=== PATIENT | male | born 1955 | race African-American/Black ===

== ENCOUNTER 2021-11-26 09:32 | Inpatient (IN) | payer OTHER ==
[~2021-11-26] VITALS: Ht 180.3 cm; Wt 67.6 kg
[2021-11-26] MEDS ORDERED: SODIUM CHLORIDE 0.9% 1,000 ML IV ONE (09:45)
[2021-11-26 09:50] LABS: BASOPHILS % 0.1 % (0.0-2.0); HEMATOCRIT. 31.4 % (42.0-52.0); HEMOGLOBIN. 10.3 g/dL (14.0-18.0); LYMPHOCYTES % 7.5 % (20.0-50.0); MEAN CORPUSCULAR HEMOGLOBIN 32.7 pg (28.0-32.0); MEAN CORPUSCULAR VOLUME 99.9 fL (80.0-94.0); MEAN PLATELET VOLUME 9.1 fl (7.4-10.4); NEUTROPHILS % 87.4 % (40.0-76.0); PLATELET 185 x1000/uL (130-400); RED BLOOD CELL COUNT 3.14 mill/uL (4.7-6.1); RED CELL DISTRIBUTION WIDTH 12.6 % (11.6-14.6)
[2021-11-26] MEDS: ADENOSINE 3 MG/ML 2ML VIAL IV ONE ×2 (09:56→09:57)
[2021-11-26 10:00] LABS: CHLORIDE 106 mEq/L (98-107)
[2021-11-26] MEDS ORDERED: DILTIAZEM HCL 5MG/ML 5ML VIAL IV ONE (10:00)
[2021-11-26] MEDS ORDERED: ASPIRIN 325MG EC TABLET PO ONE (10:15)
[2021-11-26] MEDS ORDERED: DILTIAZEM HCL 120MG CAPSULE ER 24HR PO ONE (10:15)
[2021-11-26] MEDS ORDERED: ENOXAPARIN 100MG/ML SYR SUBCUT ONE (11:15)
[2021-11-26] MEDS ORDERED: NITROGLYCERIN OINT 1GM/INCH UDPKT TD ONE (11:15)
[2021-11-26] MEDS ORDERED: FUROSEMIDE 40MG/4ML VIAL IV ONE (11:15)
[2021-11-26 12:18] LABS: CLARITY URINE CLEAR (CLEAR); COLOR URINE YELLOW (YELLOW); KETONES URINE NEGATIVE (NEGATIVE); LEUKOCYTE ESTERASE URINE NEGATIVE (NEGATIVE); NITRITE URINE NEGATIVE (NEGATIVE); OCCULT BLOOD URINE NEGATIVE (NEGATIVE); PH URINE 5.5 (4.5-8.0); PROTEIN URINE 1+ (NEGATIVE); SPECIFIC GRAVITY URINE 1.008 (1.005-1.030); UROBILINOGEN URINE 0.2 E.U./dL (0.2-1.0)
[2021-11-26] MEDS ORDERED: GUAIFENESIN 200MG/10ML SUGAR FREE UDC PO PRN (13:30)
[2021-11-26] MEDS ORDERED: ONDANSETRON HCL 4MG/2ML INJ IV PRN (13:30)
[2021-11-26] MEDS ORDERED: IPRATROPIUM/ALBUTEROL 0.5-3(2.5)MG/3ML NEB HHN PRN (13:30)
[2021-11-26] MEDS ORDERED: LORAZEPAM 0.5MG TABLET PO PRN (13:30)
[2021-11-26] MEDS ORDERED: DOCUSATE SODIUM 100MG CAPSULE PO PRN (13:30)
[2021-11-26] MEDS ORDERED: ACETAMINOPHEN 325MG TABLET PO PRN ×2 (13:30)
[2021-11-26] MEDS: AMLODIPINE 10MG TABLET PO SCH (13:55)
[2021-11-26] MEDS: CLONIDINE 0.1MG TABLET PO PRN ×2 (14:07→20:56)
[2021-11-26 14:20] LABS: BG BASE EXCESS -5.7 mmol/L (-2.0-2.0); BG CARBOXYHEMOGLOBIN 1.1 % (0.5-1.5); BG DEOXYHEMOGLOBIN 4.4 % (0.0-5.0); BG FRACTION INSPIRED OXYGEN 40; BG METHEMOGLOBIN 0.3 % (0.0-1.5); BG OXYGEN SATURATION 95.5 % (92.0-98.5); BG OXYHEMOGLOBIN 94.2 % (94.0-97.0); BG PCO2 29.8 mmHg (35.0-45.0); BG PH 7.398 (7.350-7.450); BG PO2 78.7 mmHg (75.0-100.0); BG SAMPLE SITE RIGHT RADIAL; BG TOTAL HEMOGLOBIN 12.1 g/dL (12.0-18.0); BG VENT MODE NASAL CANNULA
[2021-11-26 14:55] LABS: *AMPHETAMINES SCREEN URINE NEGATIVE (NEGATIVE); *BARBITURATES SCREEN URINE NEGATIVE (NEGATIVE); *BENZODIAZEPINES SCREEN URINE NEGATIVE (NEGATIVE); *COCAINE SCREEN URINE NEGATIVE (NEGATIVE); CANNABINOID URINE SCREEN NEGATIVE (NEGATIVE); METHADONE URINE SCREEN NEGATIVE (NEGATIVE); OPIATES URINE SCREEN NEGATIVE (NEGATIVE); PHENCYCLIDINE URINE SCREEN NEGATIVE (NEGATIVE)
[2021-11-26] MEDS ORDERED: NITROGLYCERIN 0.4MG TABLET SL SL PRN (15:00)
[2021-11-26] MEDS ORDERED: HYDRALAZINE 20MG/ML VIAL IV PRN (15:15)
[2021-11-26] MEDS ORDERED: DILTIAZEM HCL 5MG/ML 5ML VIAL IV NR (15:30)
[2021-11-26 16:36] VITALS: BP 180/102
[2021-11-26 18:36] LABS: CREATINE KINASE MB FRACTION 10.9 ng/mL (0.5-3.6)
[2021-11-26 20:00] VITALS: BP 171/104
[2021-11-26] MEDS: FAMOTIDINE 20MG TABLET PO SCH (20:56)
[2021-11-26] MEDS: DILTIAZEM HCL 30MG TABLET PO SCH (23:40)
[2021-11-27] VITALS: BP 186/105
[2021-11-27 04:00] VITALS: BP 142/88
[2021-11-27] MEDS: DILTIAZEM HCL 30MG TABLET PO SCH ×4 (05:11→23:50)
[2021-11-27 06:32] LABS: BASOPHILS % 0.3 % (0.0-2.0); EOSINOPHILS % 0.2 % (0.0-5.0); HEMATOCRIT. 28.9 % (42.0-52.0); HEMOGLOBIN. 9.6 g/dL (14.0-18.0); LYMPHOCYTES % 7.1 % (20.0-50.0); MEAN CORPUSCULAR HEMOGLOBIN 32.6 pg (28.0-32.0); MEAN PLATELET VOLUME 9.8 fl (7.4-10.4); MONOCYTES % 4.2 % (2.0-8.0); NEUTROPHILS % 88.2 % (40.0-76.0); PLATELET 161 x1000/uL (130-400); RED BLOOD CELL COUNT 2.95 mill/uL (4.7-6.1); RED CELL DISTRIBUTION WIDTH 12.6 % (11.6-14.6)
[2021-11-27 07:58] LABS: CHLORIDE 107 mEq/L (98-107)
[2021-11-27 08:00] VITALS: BP 152/89
[2021-11-27 08:16] LABS: HDL CHOLESTEROL 43 mg/dL (40-59); LDL CHOLESTEROL 55 mg/dL (5-100); PHOSPHORUS 3.7 mg/dL (2.5-4.9)
[2021-11-27 08:50] LABS: BG BASE EXCESS -8.3 mmol/L (-2.0-2.0); BG CARBOXYHEMOGLOBIN 0.3 % (0.5-1.5); BG FRACTION INSPIRED OXYGEN 21; BG HCO3 ACT 15.3 mmol/L (22.0-26.0); BG METHEMOGLOBIN 0.1 % (0.0-1.5); BG OXYHEMOGLOBIN 92.6 % (94.0-97.0); BG PCO2 25.7 mmHg (35.0-45.0); BG PH 7.393 (7.350-7.450); BG PO2 70.8 mmHg (75.0-100.0); BG SAMPLE SITE RIGHT RADIAL; BG VENT MODE ROOM AIR
[2021-11-27] MEDS ORDERED: DILTIAZEM HCL 5MG/ML 5ML VIAL IV SCH (09:00)
[2021-11-27] MEDS: ASPIRIN 81MG EC TABLET PO SCH (09:30)
[2021-11-27] MEDS: FUROSEMIDE 40MG/4ML VIAL IV SCH (09:30)
[2021-11-27] MEDS: AMLODIPINE 10MG TABLET PO SCH (09:31)
[2021-11-27 12:00] VITALS: BP 151/89
[2021-11-27] MEDS ORDERED: MAGNESIUM 2 G PREMIX 50 ML IV NR (14:00)
[2021-11-27 16:00] VITALS: BP 145/82
[2021-11-27 20:00] VITALS: BP 169/89
[2021-11-27] MEDS: FAMOTIDINE 20MG TABLET PO SCH (20:55)
[2021-11-27] MEDS: CLONIDINE 0.1MG TABLET PO PRN (20:55)
[2021-11-28] VITALS (7 sets, daily range): BP systolic 134–175; BP diastolic 85–99
[2021-11-28] MEDS: DILTIAZEM HCL 30MG TABLET PO SCH (05:03)
[2021-11-28 07:42] LABS: HEMATOCRIT 26.6 % (42.0-52.0); HEMOGLOBIN 9.1 g/dL (14.0-18.0); MEAN CORPUSCULAR HEMOGLOBIN 32.8 pg (28.0-32.0); MEAN CORPUSCULAR VOLUME 95.7 fL (80.0-94.0); PLATELET 166 x1000/uL (130-400); RED BLOOD CELL COUNT 2.78 mill/uL (4.7-6.1); RED CELL DISTRIBUTION WIDTH 12.3 % (11.6-14.6)
[2021-11-28 08:03] LABS: PHOSPHORUS 3.8 mg/dL (2.5-4.9)
[2021-11-28] MEDS: AMLODIPINE 10MG TABLET PO SCH (08:56)
[2021-11-28] MEDS: ASPIRIN 81MG EC TABLET PO SCH (08:56)
[2021-11-28] MEDS: FUROSEMIDE 40MG/4ML VIAL IV SCH (09:09)
[2021-11-28 13:12] LABS: PARTIAL THROMBOPLASTIN TIME 30.6 sec (23.4-31.0); PROTHROMBIN TIME 10.7 sec (9.6-11.0)
[2021-11-28] MEDS ORDERED: HEPARIN 1000 UNITS/ML 10ML ONE (13:32)
[2021-11-28 14:55] LABS: HEPATITIS B SURFACE ANTIGEN NEGATIVE
[2021-11-28] MEDS: DILTIAZEM HCL 60MG TABLET PO SCH ×2 (17:38→23:56)
[2021-11-28] MEDS: FAMOTIDINE 20MG TABLET PO SCH (20:39)
[2021-11-28] MEDS: EPOETIN ALFA-EPBX 4,000 UNIT/ML VIAL SUBCUT SCH (20:39)
[2021-11-29] VITALS: BP 151/94
[2021-11-29 04:00] VITALS: BP 143/71
[2021-11-29] MEDS: DILTIAZEM HCL 60MG TABLET PO SCH ×3 (05:07→17:59)
[2021-11-29 06:50] LABS: BASOPHILS % 0.3 % (0.0-2.0); EOSINOPHILS % 1.8 % (0.0-5.0); HEMATOCRIT. 24.2 % (42.0-52.0); HEMOGLOBIN. 8.2 g/dL (14.0-18.0); LYMPHOCYTES % 14.5 % (20.0-50.0); MEAN CORPUSCULAR HEMOGLOBIN 32.6 pg (28.0-32.0); MEAN CORPUSCULAR VOLUME 95.9 fL (80.0-94.0); MEAN PLATELET VOLUME 8.7 fl (7.4-10.4); MONOCYTES % 10.6 % (2.0-8.0); NEUTROPHILS % 72.8 % (40.0-76.0); PLATELET 170 x1000/uL (130-400); RED BLOOD CELL COUNT 2.53 mill/uL (4.7-6.1); RED CELL DISTRIBUTION WIDTH 12.2 % (11.6-14.6)
[2021-11-29 06:56] LABS: PHOSPHORUS 3.3 mg/dL (2.5-4.9)
[2021-11-29 08:00] VITALS: BP 173/88
[2021-11-29] MEDS: AMLODIPINE 10MG TABLET PO SCH (09:21)
[2021-11-29] MEDS: ASPIRIN 81MG EC TABLET PO SCH (09:22)
[2021-11-29 12:00] VITALS: BP 153/96
[2021-11-29 16:00] VITALS: BP 146/90
[2021-11-29] MEDS: DUTASTERIDE 0.5MG CAPSULE PO SCH (17:58)
[2021-11-29] MEDS: TAMSULOSIN HCL 0.4MG SR CAPSULE PO SCH (17:58)
[2021-11-29 20:00] VITALS: BP 145/84
[2021-11-29] MEDS: FAMOTIDINE 20MG TABLET PO SCH (21:38)
[2021-11-30] VITALS: BP 153/88
[2021-11-30] MEDS: DILTIAZEM HCL 60MG TABLET PO SCH ×4 (00:25→18:33)
[2021-11-30 04:00] VITALS: BP 148/83
[2021-11-30 07:57] VITALS: BP 161/78
[2021-11-30] MEDS: TAMSULOSIN HCL 0.4MG SR CAPSULE PO SCH (08:15)
[2021-11-30] MEDS: AMLODIPINE 10MG TABLET PO SCH (08:15)
[2021-11-30] MEDS: DUTASTERIDE 0.5MG CAPSULE PO SCH (08:15)
[2021-11-30] MEDS: ASPIRIN 81MG EC TABLET PO SCH (08:15)
[2021-11-30 08:38] LABS: BASOPHILS % 0.3 % (0.0-2.0); EOSINOPHILS % 0.5 % (0.0-5.0); LYMPHOCYTES % 8.3 % (20.0-50.0); MEAN CORPUSCULAR HEMOGLOBIN 32.1 pg (28.0-32.0); MEAN CORPUSCULAR VOLUME 97.7 fL (80.0-94.0); MEAN PLATELET VOLUME 9.1 fl (7.4-10.4); MONOCYTES % 8.7 % (2.0-8.0); NEUTROPHILS % 82.2 % (40.0-76.0); PLATELET 209 x1000/uL (130-400); RED BLOOD CELL COUNT 2.99 mill/uL (4.7-6.1); RED CELL DISTRIBUTION WIDTH 12.3 % (11.6-14.6)
[2021-11-30 09:08] LABS: HEMATOCRIT. 29.2 % (42.0-52.0); HEMOGLOBIN. 9.6 g/dL (14.0-18.0)
[2021-11-30 11:57] VITALS: BP 134/70
[2021-11-30 16:00] VITALS: BP 142/68
[2021-11-30 20:39] VITALS: BP 129/75
[2021-11-30] MEDS: EPOETIN ALFA-EPBX 4,000 UNIT/ML VIAL SUBCUT SCH (20:39)
[2021-11-30] MEDS: FAMOTIDINE 20MG TABLET PO SCH (20:39)
[2021-12-01] VITALS: BP 135/84
[2021-12-01] MEDS: DILTIAZEM HCL 60MG TABLET PO SCH ×4 (00:54→17:55)
[2021-12-01 04:00] VITALS: BP 131/71
[2021-12-01 07:38] LABS: HEMOGLOBIN. 9.3 g/dL (14.0-18.0); MEAN CORPUSCULAR HEMOGLOBIN 32.5 pg (28.0-32.0); MEAN PLATELET VOLUME 8.6 fl (7.4-10.4); PLATELET 210 x1000/uL (130-400); RED BLOOD CELL COUNT 2.86 mill/uL (4.7-6.1); RED CELL DISTRIBUTION WIDTH 12.1 % (11.6-14.6)
[2021-12-01 08:10] VITALS: BP 133/74
[2021-12-01] MEDS: DUTASTERIDE 0.5MG CAPSULE PO SCH (08:11)
[2021-12-01 08:12] LABS: IMMUNOGLOBULIN A 332 mg/dL (61-437); IMMUNOGLOBULIN G 1273 mg/dL (603-1613); IMMUNOGLOBULIN M 54 mg/dL (20-172)
[2021-12-01] MEDS: AMLODIPINE 10MG TABLET PO SCH (08:12)
[2021-12-01] MEDS: ASPIRIN 81MG EC TABLET PO SCH (08:12)
[2021-12-01] MEDS: TAMSULOSIN HCL 0.4MG SR CAPSULE PO SCH (08:13)
[2021-12-01 11:57] VITALS: BP 137/76
[2021-12-01 13:07] LABS: PLATELET ESTIMATE NORMAL
[2021-12-01] MEDS ORDERED: MAGNESIUM 2 G PREMIX 50 ML IV NR (13:30)
[2021-12-01 14:22] VITALS: BP 137/76
[2021-12-01 16:00] VITALS: BP 142/72
== END 2021-12-01 18:05 | disposition short-term general hospital (02) | DRG 280 ==
LOC: ER 09:32 → 7WST 12:30 → EDBEDREQ 12:36 → ENRESERV 12:55
PROVIDERS: ADMIT Hospitalist; ATTEND Hospitalist
PROC: 02HV33Z Insertion of Infusion Device into Superior Vena Cava, Percutaneous Approach (ICD-10-PCS; principal; 2021-11-28)
PROC: B5181ZA Fluoroscopy of Superior Vena Cava using Low Osmolar Contrast, Guidance (ICD-10-PCS; 2021-11-28)
PROC: 5A1D70Z Performance of Urinary Filtration, Intermittent, Less than 6 Hours Per Day (ICD-10-PCS; 2021-11-28)
DX: I13.0 Hypertensive heart and chronic kidney disease with heart failure and stage 1 through stage 4 chronic kidney disease, or unspecified chronic kidney disease (principal); I50.41 Acute combined systolic (congestive) and diastolic (congestive) heart failure; I21.A1 Myocardial infarction type 2; J96.01 Acute respiratory failure with hypoxia; I16.1 Hypertensive emergency; E44.1 Mild protein-calorie malnutrition; E87.2 Acidosis; M62.82 Rhabdomyolysis; N17.9 Acute kidney failure, unspecified; I47.1 Supraventricular tachycardia; N13.8 Other obstructive and reflux uropathy; N13.30 Unspecified hydronephrosis; Z20.822 Contact with and (suspected) exposure to COVID-19; E83.42 Hypomagnesemia; E87.5 Hyperkalemia; D72.829 Elevated white blood cell count, unspecified; D50.9 Iron deficiency anemia, unspecified; N18.9 Chronic kidney disease, unspecified; I34.0 Nonrheumatic mitral (valve) insufficiency; N40.0 Benign prostatic hyperplasia without lower urinary tract symptoms; Z66 Do not resuscitate; Z82.49 Family history of ischemic heart disease and other diseases of the circulatory system; Z91.14 Patient's other noncompliance with medication regimen
CPT/HCPCS: 36415; 36556; 36558; 36600; 71045; 76770; 76937; 77001; 80048; 80053; 80061; 80305; 81003; 82375; 82550; 82553; 82570; 82784; 82805; 83036; 83605; 83735; 83880; 84100; 84145; 84153; 84156; 84439; 84443; 84481; 84484; 85025; 85027; 86160; 86334; 86705; 86709; 86803; 87340; 87426; 93005; 93306; 97162; 99291; C1752; C1769; C1887; C1893; C9803; J0153; J0360; J0885; J1644; J1650; J1940; J3475; J3490; J7030; L8514; A4315; G0103

== ENCOUNTER 2021-12-10 09:20 | Inpatient (IN) | payer OTHER ==
[~2021-12-10] VITALS: Ht 180.3 cm; Wt 80.3 kg
[2021-12-10 10:26] LABS: HEMOGLOBIN. 9.8 g/dL (14.0-18.0); MEAN CORPUSCULAR VOLUME 98.4 fL (80.0-94.0); MEAN PLATELET VOLUME 8.5 fl (7.4-10.4); PLATELET 396 x1000/uL (130-400); RED BLOOD CELL COUNT 3.05 mill/uL (4.7-6.1); RED CELL DISTRIBUTION WIDTH 12.8 % (11.6-14.6)
[2021-12-10 10:35] LABS: CHLORIDE 95 mEq/L (98-107)
[2021-12-10 11:00] LABS: PLATELET ESTIMATE NORMAL
[2021-12-10 14:02] LABS: CLARITY URINE CLEAR (CLEAR); COLOR URINE YELLOW (YELLOW); KETONES URINE NEGATIVE (NEGATIVE); LEUKOCYTE ESTERASE URINE 2+ (NEGATIVE); NITRITE URINE NEGATIVE (NEGATIVE); OCCULT BLOOD URINE 3+ (NEGATIVE); PROTEIN URINE 2+ (NEGATIVE); SPECIFIC GRAVITY URINE 1.013 (1.005-1.030); UROBILINOGEN URINE 0.2 E.U./dL (0.2-1.0)
[2021-12-10] MEDS ORDERED: CEFTRIAXONE 1 G PREMIX 50 ML IV ONE (14:30)
[2021-12-10] MEDS ORDERED: PANTOPRAZOLE SODIUM 40 MG/VIAL IV ONE (16:15)
[2021-12-10 17:10] LABS: HEMATOCRIT 25.5 % (42.0-52.0); HEMOGLOBIN 8.5 g/dL (14.0-18.0)
[2021-12-10] MEDS ORDERED: CLONIDINE 0.1MG TABLET PO PRN (18:45)
[2021-12-10] MEDS: SODIUM CHLORIDE 0.9% 1,000 ML IV SCH (18:45)
[2021-12-10] MEDS ORDERED: ACETAMINOPHEN 325MG TABLET PO PRN (18:45)
[2021-12-10] MEDS ORDERED: HYDROCODONE/ACETAMINOPHEN 5/325MG TABLET PO PRN (18:45)
[2021-12-10] MEDS ORDERED: IPRATROPIUM/ALBUTEROL 0.5-3(2.5)MG/3ML NEB NEB PRN (18:45)
[2021-12-10] MEDS ORDERED: GUAIFENESIN 200MG/10ML SUGAR FREE UDC PO PRN (18:45)
[2021-12-10] MEDS ORDERED: NALOXONE HCL 0.4MG/ML VIAL IV PRN (19:00)
[2021-12-10 22:27] LABS: HEMATOCRIT 24.9 % (42.0-52.0); HEMOGLOBIN 8.2 g/dL (14.0-18.0); MEAN CORPUSCULAR HEMOGLOBIN 31.7 pg (28.0-32.0); MEAN CORPUSCULAR VOLUME 96.2 fL (80.0-94.0); PLATELET 365 x1000/uL (130-400); RED BLOOD CELL COUNT 2.59 mill/uL (4.7-6.1); RED CELL DISTRIBUTION WIDTH 12.9 % (11.6-14.6)
[2021-12-11 02:00] VITALS: BP 125/71
[2021-12-11 04:00] VITALS: BP 126/69
[2021-12-11] MEDS: SODIUM CHLORIDE 0.9% 1,000 ML IV SCH ×2 (06:09→18:10)
[2021-12-11 06:43] LABS: HEMATOCRIT 22.7 % (42.0-52.0); HEMOGLOBIN 7.6 g/dL (14.0-18.0); MEAN CORPUSCULAR HEMOGLOBIN 32.5 pg (28.0-32.0); MEAN CORPUSCULAR VOLUME 96.4 fL (80.0-94.0); PLATELET 322 x1000/uL (130-400); RED BLOOD CELL COUNT 2.35 mill/uL (4.7-6.1); RED CELL DISTRIBUTION WIDTH 12.5 % (11.6-14.6)
[2021-12-11 08:00] VITALS: BP 127/52
[2021-12-11] MEDS: PANTOPRAZOLE SODIUM 40 MG/VIAL IV SCH ×2 (08:33→16:41)
[2021-12-11] MEDS ORDERED: CEFTRIAXONE 1 G PREMIX 50 ML IV SCH (09:00)
[2021-12-11 09:39] LABS: CHLORIDE 94 mEq/L (98-107)
[2021-12-11] MEDS ORDERED: SODIUM POLYSTYRENE SULFONATE 15 G/60 ML BOT PO NR (10:30)
[2021-12-11 12:00] VITALS: BP 140/70
[2021-12-11 14:41] LABS: TOTAL IRON BINDING CAPACITY 276 ug/dL (250-450)
[2021-12-11 16:00] VITALS: BP 120/63
[2021-12-11] MEDS ORDERED: MAGNESIUM HYDROXIDE 400MG/5ML 30ML UDC PO PRN (16:30)
[2021-12-11] MEDS ORDERED: SENNOSIDES/DOCUSATE SOD 8.6/50MG TABLET PO PRN (16:30)
[2021-12-11] MEDS: SUCRALFATE 1 G/10 ML UDC PO SCH ×2 (16:41→21:29)
[2021-12-11] MEDS: CEFTRIAXONE 1,000 MG in DEXTROSE 5% WATER 50 ML IV SCH (16:41)
[2021-12-11 20:00] VITALS: BP 112/64
[2021-12-11] MEDS: BACLOFEN 10MG TABLET PO SCH (21:29)
[2021-12-12] VITALS (14 sets, daily range): BP systolic 116–144; BP diastolic 59–89
[2021-12-12] MEDS: BACLOFEN 10MG TABLET PO SCH ×3 (05:49→21:16)
[2021-12-12] MEDS: SUCRALFATE 1 G/10 ML UDC PO SCH ×4 (05:51→21:16)
[2021-12-12 06:53] LABS: HEMATOCRIT. 24.8 % (42.0-52.0); HEMOGLOBIN. 8.4 g/dL (14.0-18.0); MEAN CORPUSCULAR HEMOGLOBIN 31.7 pg (28.0-32.0); MEAN CORPUSCULAR VOLUME 93.6 fL (80.0-94.0); MEAN PLATELET VOLUME 8.8 fl (7.4-10.4); PLATELET 254 x1000/uL (130-400); RED BLOOD CELL COUNT 2.65 mill/uL (4.7-6.1); RED CELL DISTRIBUTION WIDTH 14.3 % (11.6-14.6)
[2021-12-12 07:21] LABS: PROTHROMBIN TIME 11.2 sec (9.6-11.0)
[2021-12-12] MEDS: PANTOPRAZOLE SODIUM 40 MG/VIAL IV SCH ×2 (08:42→16:37)
[2021-12-12] MEDS: POLYETHYLENE GLYCOL 3350 (17GM) 1 DOSE PACK PO SCH (08:43)
[2021-12-12 09:05] LABS: PHOSPHORUS 5.4 mg/dL (2.5-4.9)
[2021-12-12 09:22] LABS: PLATELET ESTIMATE NORMAL
[2021-12-12] MEDS: SODIUM CHLORIDE 0.9% 1,000 ML IV SCH (11:48)
[2021-12-12] MEDS: IRON SUCROSE COMPLEX 100 MG/5 ML ML IV SCH (14:02)
[2021-12-12] MEDS: CEFTRIAXONE 1,000 MG in DEXTROSE 5% WATER 50 ML IV SCH (14:03)
[2021-12-13] VITALS (7 sets, daily range): BP systolic 102–173; BP diastolic 48–92
[2021-12-13] MEDS: SODIUM CHLORIDE 0.9% 1,000 ML IV SCH ×2 (01:10→11:02)
[2021-12-13] MEDS: BACLOFEN 10MG TABLET PO SCH ×3 (05:48→22:14)
[2021-12-13] MEDS: SUCRALFATE 1 G/10 ML UDC PO SCH ×4 (05:48→20:48)
[2021-12-13] MEDS: IRON SUCROSE COMPLEX 100 MG/5 ML ML IV SCH (08:57)
[2021-12-13] MEDS: PANTOPRAZOLE SODIUM 40 MG/VIAL IV SCH ×2 (08:59→16:49)
[2021-12-13] MEDS: POLYETHYLENE GLYCOL 3350 (17GM) 1 DOSE PACK PO SCH (09:03)
[2021-12-13 10:17] LABS: HEMATOCRIT. 26.8 % (42.0-52.0); HEMOGLOBIN. 9.2 g/dL (14.0-18.0); MEAN CORPUSCULAR HEMOGLOBIN 32.7 pg (28.0-32.0); MEAN CORPUSCULAR VOLUME 95.5 fL (80.0-94.0); MEAN PLATELET VOLUME 8.8 fl (7.4-10.4); PLATELET 273 x1000/uL (130-400); RED BLOOD CELL COUNT 2.81 mill/uL (4.7-6.1); RED CELL DISTRIBUTION WIDTH 14.6 % (11.6-14.6)
[2021-12-13 10:50] LABS: CHLORIDE 112 mEq/L (98-107)
[2021-12-13 11:10] LABS: PHOSPHORUS 4.2 mg/dL (2.5-4.9)
[2021-12-13 13:37] LABS: PLATELET ESTIMATE NORMAL
[2021-12-13] MEDS ORDERED: DILTIAZEM HCL 180MG CAPSULE CD 24HR PO SCH (13:45)
[2021-12-13] MEDS: SODIUM CHLORIDE 0.45% 1,000 ML IV SCH ×2 (14:40→22:14)
[2021-12-13] MEDS: CEFTRIAXONE 1,000 MG in DEXTROSE 5% WATER 50 ML IV SCH (16:44)
== END 2021-12-13 23:57 | disposition short-term general hospital (02) | DRG 177 ==
LOC: ER 09:20 → EDBEDREQTM 11:59 → CANBEDREQ 14:13 → EDBEDREQSVC 17:43 → EDBEDREQ 17:45 → MICUSO 17:59 → SUPCPDRO 18:39 → EDBEDREQTM 21:22 → EDBEDREQ 21:22 → 8WST 12-11 01:50 → 7EST 12-12 23:05
PROVIDERS: ADMIT Internal Medicine; ATTEND Internal Medicine
PROC: 30233N1 Transfusion of Nonautologous Red Blood Cells into Peripheral Vein, Percutaneous Approach (ICD-10-PCS; principal; 2021-12-12)
DX: U07.1 COVID-19 (principal); I21.A1 Myocardial infarction type 2; I50.23 Acute on chronic systolic (congestive) heart failure; N18.6 End stage renal disease; N39.0 Urinary tract infection, site not specified; N17.9 Acute kidney failure, unspecified; K92.2 Gastrointestinal hemorrhage, unspecified; N13.8 Other obstructive and reflux uropathy; I47.1 Supraventricular tachycardia; E87.1 Hypo-osmolality and hyponatremia; I13.2 Hypertensive heart and chronic kidney disease with heart failure and with stage 5 chronic kidney disease, or end stage renal disease; Z66 Do not resuscitate; N40.1 Benign prostatic hyperplasia with lower urinary tract symptoms; E87.5 Hyperkalemia; D53.9 Nutritional anemia, unspecified; N40.0 Benign prostatic hyperplasia without lower urinary tract symptoms; Z82.49 Family history of ischemic heart disease and other diseases of the circulatory system; Z91.14 Patient's other noncompliance with medication regimen; Z79.82 Long term (current) use of aspirin; Z86.73 Personal history of transient ischemic attack (TIA), and cerebral infarction without residual deficits; Z99.2 Dependence on renal dialysis
CPT/HCPCS: 36415; 71045; 76770; 80048; 80053; 81003; 82607; 82728; 82746; 82962; 83540; 83550; 83605; 83735; 83880; 84100; 84145; 84484; 85014; 85018; 85025; 85027; 85044; 86850; 86900; 86920; 87426; 93005; 99285; C9113; J0696; J7060; P9016